=== PATIENT | male | born 1975 | race Caucasian/White ===

== ENCOUNTER 2016-09-21 18:03 | Emergency (ER) | payer OTHER ==
[~2016-09-21] VITALS: Ht 185.4 cm; Wt 136.1 kg
[~2016-09-21 18:03] MED LIST: ANTIVERT 25 MG25 MG PO; LISINOPRIL20 MG PO; LORAZEPAM1 MG PO; SUCRALFATE1 GM PO
[2016-09-21 18:12] VITALS: BP 147/107
[2016-09-21] MEDS ORDERED: VITAMIN D250000 UNIT PO (19:21)
[2016-09-21] MEDS ORDERED: LISINOPRIL20 M1 PO (19:22)
[2016-09-21] MEDS ORDERED: METFORMIN HCL500 M3 PO (19:22)
[2016-09-21] MEDS ORDERED: PANTOPRAZOLE SO40 M1 PO (19:22)
[2016-09-21] MEDS ORDERED: LORAZEPAM1 M1 PO (19:22)
[2016-09-21] MEDS ORDERED: TRAMADOL HCL50 M1 PO (19:31)
[2016-09-21] MEDS ORDERED: DICLOFENAC POTA50 M1 PO (19:31)
--- NOTE | 2016-09-21 19:32 | ED THROAT/DENTAL COMPLAINT ---
History of Present Illness General Chief Complaint: Sore Throat, Dental Pain Stated Complaint: DENTAL PAIN Source: patient, old records Exam Limitations: no limitations Vital Signs & Intake/Output Vital Signs & Intake/Output Vital Signs Date Time Temp Pulse Resp B/P Pulse O2 O2 Flow FiO2 Ox Delivery Rate 09/21 1812 97.6 94 16 147/107 98 Room Air Allergies Coded Allergies: naproxen (RASH SWELLING 09/21/16) Reconcile Medications Diclofenac Potassium 50 MG TABLET 1 TAB PO TID PRN PAIN Ergocalciferol (Vitamin D2) (Vitamin D2) 50,000 UNIT CAPSULE 1 CAP PO QW VITAMINS (Reported) Lisinopril 20 MG TABLET 1 TAB PO D HYPERTENSION (Reported) Lisinopril 20 MG TABLET 1 TAB PO DAILY HTN (Reported) Lorazepam 1 MG TABLET 1 TAB PO DAILY PRN ANXIETY (Reported) Lorazepam 1 MG TABLET 1 TAB PO BID ANXIETY (Reported) Metformin HCl 500 MG TABLET 1 TAB PO BID DM (Reported) Pantoprazole Sodium 40 MG TABLET.DR 1 TAB PO DAILY GERD (Reported) Sucralfate 1 GRAM TABLET 1 TAB PO TID GASTRITIS Tramadol HCl 50 MG TABLET 1 TAB PO Q6P PRN pain Triage Note: PT HAS DENTAL PAIN THAT STARTED 3 DAYS AGO UNABLE TO GET INTO DENTIST WITHOUT RELEASE FROM PCP AND PCP WOULD NOT BE ABLE TO SEE HIM TODAY. Triage Nurses Notes Reviewed? yes Onset: Gradual Duration: day(s): (3), constant, continues in ED Timing: recent history Severity: severe Modifying Factors: Worsens With: eating. HPI: Pt presents for eval of dental pain due to poor dentition. awaiting medical clearance for oral surgery under anesthesia. taking ibuprofen 800mg every 6 hours without relief. Past History Travel History Traveled to [place] past 21 day No Medical History Any Pertinent Medical History? see below for history Cardiovascular: hypertension Respiratory: NONE Gastrointestinal: NONE Hepatic: NONE Renal: NONE Musculoskeletal: L ANKLE DEFECT Endocrine: diabetes Blood Disorders: NONE Cancer(s): NONE Surgical History Surgical History: non-contributory Psychosocial History What is your primary language [place]ian Tobacco Use: Quit >30 days ago ETOH Use: denies use Illicit Drug Use: denies illicit drug use Family History Family History, If Any: Relation not specified for: FHx: diabetes mellitus Hx Contributory? No Review of Systems Review of Systems Constitutional: Reports: no symptoms. EENTM: Reports: see HPI. Respiratory: Reports: no symptoms. Cardiovascular: Reports: no symptoms. GI: Reports: no symptoms. Genitourinary: Reports: no symptoms. Musculoskeletal: Reports: no symptoms. Skin: Reports: no symptoms. Neurological/Psychological: Reports: no symptoms. Hematologic/Endocrine: Reports: no symptoms. Immunologic/Allergic: Reports: no symptoms. All Other Systems: Reviewed and Negative Physical Exam Physical Exam Mouth/Throat: see below Comments: poor dentition, multiple missing teeth, no indication of abscess no cervical lad Core Measures ACS in differential dx? No Severe Sepsis Present: No Septic Shock Present: No Progress Differential Diagnosis: carious tooth, Ludwigs angina, odontogenic abscess, dahlia -tonsillar abscess, stomatitis/gingivitis, strep pharyngitis Plan of Care: F/U DENTIST,SX CARE Departure Departure Disposition: HOME OR SELF CARE Condition: Stable Clinical Impression Primary Impression: Odontalgia Secondary Impressions: Carious teeth Referrals: LUISA AALRCON,DELPHINE Godoy (PCP/Family) Additional Instructions: follow up with your dentist as scheduled on . voltaren as prescribed for pain. add tramadol if needed. soft diet. return if any sudden worsening. Departure Forms: Customer Survey General Discharge Information Prescriptions: Current Visit Scripts Diclofenac Potassium 1 TAB PO TID PRN PAIN #12 TAB Tramadol HCl 1 TAB PO Q6P PRN pain #12 TAB
== END 2016-09-21 19:41 ==
LOC: ERH 18:03
DX: K08.89 Other specified disorders of teeth and supporting structures (principal); K02.9 Dental caries, unspecified